=== PATIENT | male | born 1945 | race Caucasian/White ===

== ENCOUNTER → 2019-08-17 10:54 | Outpatient (CLI) | payer MEDICARE, SELFPAY ==
[2019-08-17 11:00] VITALS: PULSE 103; PULSE 104; PULSE 106; PULSE 66; PULSE 69; PULSE 77; PULSE 87; PULSE 88; O2SAT 92; O2SAT 94; O2SAT 95
--- NOTE | 2019-08-18 13:31 | WT_ITS ---
PSN 6 Minute Walk Test - 6 Minute Walk Test 6 Minute Walk Test: 6 Minute Walk Test PSN:6-Minute Walk Test Start: 08/17/19 11:25 Freq: Status: Active Protocol: [id number] Document 08/17/19 11:00 [facility] (Rec: 08/17/19 11:32 [facility] [id number]) 6 Minute Walk Test Date Performed 08/17/19 Time Performed 11:00 Height 6 ft 2 in Weight: 140 lb Weight in Pounds 140.[address]: Dr Alves Assistive device used: None Pre-test Oxygen Delivery Method Room Air Pulse Ox (%) 95 Pulse Rate (60-100 beats/min) 69 Dyspnea Matthias Scale (0-10) 0 Exertion Matthias Scale (6-20) 6 1st minute Oxygen Delivery Method Room Air Pulse Ox (%) 94 Pulse Rate (60-100 beats/min) 77 2nd minute Oxygen Delivery Method Room Air Pulse Ox (%) 95 Pulse Rate (60-100 beats/min) 87 3rd minute Oxygen Delivery Method Room Air Pulse Ox (%) 92 Pulse Rate (60-100 beats/min) 103 H 4th minute Oxygen Delivery Method Room Air Pulse Ox (%) 92 Pulse Rate (60-100 beats/min) 88 5th minute Oxygen Delivery Method Room Air Pulse Ox (%) 92 Pulse Rate (60-100 beats/min) 106 H 6th minute Oxygen Delivery Method Room Air Pulse Ox (%) 94 Pulse Rate (60-100 beats/min) 104 H Dyspnea Matthias Scale (0-10) 3 Exertion Matthias Scale (6-20) 13 Post-test Oxygen Delivery Method Room Air Pulse Ox (%) 95 Pulse Rate (60-100 beats/min) 66 Full Laps Walked 18 Partial Lap, Number of Tiles Walked 49 Total Distance Walked (ft) 1111 - Interpretation Interpretation: The patient ambulated 1111 feet over the course of 6 minutes beginning on room air without assistive devices or breaks. Pretesting oxygen saturation was noted to be 95% on room air. With ambulation, the olinda oxygen saturation was 92%. There was no significant exertional oxygen desaturation. - Recommendations Recommendations: There is no indication for the use of supplemental oxygen at this time.
== END ==
PROVIDERS: PCP Family Medicine; Referring Provider Internal Medicine Critical Care Medicine; Visit Provider Internal Medicine Critical Care Medicine
DX: J44.9 Chronic obstructive pulmonary disease, unspecified (principal)
CPT/HCPCS: 94618

== ENCOUNTER → 2019-10-15 13:11 | Outpatient (CLI) | payer MEDICARE, SELFPAY ==
--- NOTE | 2019-10-16 12:36 | PFT ---
INTRODUCTION: The patient is a 74-year-old male that presents for pulmonary function studies secondary to a diagnosis of COPD. Respiratory therapy reports good patient effort. Bronchodilators were used during testing. INTERPRETATION: Forced expiration spirometry demonstrates the presence of a severe large airways obstructive ventilatory defect. There was no significant response to aerosolized bronchodilators, based upon strict ATS criteria. Spirograms are of fair quality and do not plateau indicating slow emptying of the lungs. Body plethysmography was performed and revealed a decreased TLC to 5.33 L, 72% of predicted, indicative of a mild restrictive ventilatory impairment. The patient was unable to perform diffusing capacity maneuvers. IMPRESSION: Irreversible severe mixed ventilatory defect. Diffusing capacity could not be determined.
== END ==
PROVIDERS: PCP Family Medicine; Referring Provider Internal Medicine Critical Care Medicine; Visit Provider Internal Medicine Critical Care Medicine
DX: J44.9 Chronic obstructive pulmonary disease, unspecified (principal)
CPT/HCPCS: 94060; 94726

== ENCOUNTER → 2019-10-20 12:32 | Outpatient (CLI) | payer MEDICARE, SELFPAY ==
[2019-10-20 11:20] VITALS: BMI 17.4
--- NOTE | 2019-10-20 12:45 | RAD_ITS ---
STUDY: X-RAY CHEST REASON FOR EXAM: Male, 74 years old. Sob TECHNIQUE: PA and lateral views of the chest. COMPARISON: None. FINDINGS: Hyperinflation of the right lung with blunting of the right cosmetic angle. Surgical clips are seen in the left hilar region with volume loss in the left hemithorax most likely postsurgical in nature. There is evidence of extensive scarring in the right lung with blunting of the left costophrenic angle. Surgical clips are also seen in the lower cervical region. Normal size heart. Normal mediastinum and marisabel. Normal visualized pulmonary arteries. There is atherosclerotic calcification of the aortic arch with tortuosity. There is demineralization of the osseous structures. Normal visualized ribs, clavicles, and shoulders. There is no demonstrated abnormality of the visualized soft tissue structures of the upper abdomen. RAD/Chest PA and Lateral IMPRESSION: Volume loss in the left hemithorax with postsurgical changes and scarring. Surgical clips are also seen in the lower cervical region most likely secondary to prior thyroid surgery. Electronically Signed: Gonzalez Ricci, at 13:11 EDT , Service support ,
== END ==
PROVIDERS: PCP Family Medicine; Referring Provider Nurse Practitioner Acute Care; Visit Provider Nurse Practitioner Acute Care
DX: R06.02 Shortness of breath (principal)
CPT/HCPCS: 71046